=== PATIENT | female | born 1940 | race Caucasian/White ===

== ENCOUNTER 2017-02-10 12:30 | Emergency (ER) | payer MEDICARE ==
[2017-02-10] MEDS ORDERED: traMADol HCl 50 MG TAB ONE (13:19)
--- NOTE | 2017-02-10 13:36 | RAD ---
THREE VIEWS RIGHT SHOULDER: History: Patient fell three weeks ago. Pain. Comparison: None. FINDINGS: No dislocation. Contour of the humeral head is maintained. Visualized right ribs are unremarkable. N o fractures. IMPRESSION: No fracture or dislocation. POS: [facility]
--- NOTE | 2017-02-10 13:38 | RAD ---
THORACIC SPINE THREE VIEWS: History: Fall three weeks ago. Pain. Comparison: None. FINDINGS: Thoracic spine vertebral body height is maintained. There is no fracture. There is mild loss of disc space height and osteophyte formation throughout the thoracic spine. Note: Evaluation of the upper thoracic spine is limited on the AP and lateral projection due to exclusion. Repeat additional image s are recommended. IMPRESSION: No evidence of fracture on the visualized thoracic spine. Additional repeat images are recommended t o evaluate the upper thoracic spine. POS: [facility]
== END 2017-02-10 13:50 | disposition home or self-care (01) ==
LOC: MADERS 12:30
DX: S43.401A Unspecified sprain of right shoulder joint, initial encounter (principal); E03.9 Hypothyroidism, unspecified; I10 Essential (primary) hypertension; E11.9 Type 2 diabetes mellitus without complications; F32.9 Major depressive disorder, single episode, unspecified; Z79.82 Long term (current) use of aspirin; Z79.84 Long term (current) use of oral hypoglycemic drugs; Z79.899 Other long term (current) drug therapy; W18.30XA Fall on same level, unspecified, initial encounter
CPT/HCPCS: 72072

== ENCOUNTER 2022-01-06 10:21 | Inpatient (IN) | payer OTHER ==
[2022-01-06] MEDS ORDERED: Senokot S 8.6-50 MG TAB PO PRN (19:26)
[2022-01-06] MEDS ORDERED: Ondansetron ODT 4 MG TAB PO PRN (19:26)
[2022-01-06] MEDS: Acetaminophen 325 MG TAB PO PRN (20:25)
[2022-01-06] MEDS: Famotidine 20 MG TAB PO SCH (20:25)
[2022-01-06] MEDS ORDERED: Albuterol 200 PUFF (6.7GM INHALER) INH PRN (21:21)
[2022-01-06] MEDS ORDERED: Dextrose 50% Abboject 50 ML SYRINGE SLOW IVP PRN (21:36)
[2022-01-06] MEDS: clonazePAM 0.5 MG TAB PO PRN (22:12)
[2022-01-06] MEDS: HumaLOG 300 UNITS/3 ML VIAL SC PRN (22:20)
[2022-01-07] MEDS: Levothyroxine Sodium 75 MCG TAB PO SCH (05:46)
[2022-01-07] MEDS: Alogliptin 6.25 MG TAB PO SCH (08:29)
[2022-01-07] MEDS: Aspirin 81 mg Enteric Coated Tablet PO SCH (08:29)
[2022-01-07] MEDS: Fish Oil 1,000 MG CAP PO SCH (08:29)
[2022-01-07] MEDS: Citalopram 20 MG TAB PO SCH (08:29)
[2022-01-07] MEDS: Ezetimibe 10 MG TAB PO SCH (08:29)
[2022-01-07] MEDS: Lantus 1000 UNITS/10 ML VIAL SC SCH ×2 (08:30→21:24)
[2022-01-07] MEDS: Fluticasone Propionate Nasal Spray 16 gm Bottle NASAL SCH (08:30)
[2022-01-07] MEDS: Famotidine 20 MG TAB PO SCH ×2 (08:35→21:11)
[2022-01-07] MEDS: HumaLOG 300 UNITS/3 ML VIAL SC PRN (12:54)
[2022-01-07] MEDS: clonazePAM 0.5 MG TAB PO PRN (15:43)
[2022-01-07] MEDS: Atorvastatin Calcium 40 MG TAB PO SCH (21:11)
[2022-01-07] MEDS: Acetaminophen 325 MG TAB PO PRN (21:11)
[2022-01-07] MEDS: traZODone HCl 50 MG TAB PO PRN (21:11)
[2022-01-08] MEDS: Levothyroxine Sodium 75 MCG TAB PO SCH (05:49)
[2022-01-08] MEDS: Citalopram 20 MG TAB PO SCH (08:44)
[2022-01-08] MEDS: Ezetimibe 10 MG TAB PO SCH (08:44)
[2022-01-08] MEDS: Famotidine 20 MG TAB PO SCH ×2 (08:44→21:45)
[2022-01-08] MEDS: Fluticasone Propionate Nasal Spray 16 gm Bottle NASAL SCH (08:44)
[2022-01-08] MEDS: Fish Oil 1,000 MG CAP PO SCH (08:44)
[2022-01-08] MEDS: Aspirin 81 mg Enteric Coated Tablet PO SCH (08:44)
[2022-01-08] MEDS: Alogliptin 6.25 MG TAB PO SCH (08:44)
[2022-01-08] MEDS: Lantus 1000 UNITS/10 ML VIAL SC SCH ×2 (08:45→21:46)
[2022-01-08] MEDS: HumaLOG 300 UNITS/3 ML VIAL SC PRN ×2 (12:12→17:21)
[2022-01-08] MEDS: clonazePAM 0.5 MG TAB PO PRN (15:38)
[2022-01-08] MEDS: Atorvastatin Calcium 40 MG TAB PO SCH (21:44)
[2022-01-08] MEDS: Acetaminophen 325 MG TAB PO PRN (21:45)
[2022-01-08] MEDS: traZODone HCl 50 MG TAB PO PRN (21:45)
[2022-01-09] MEDS: Levothyroxine Sodium 75 MCG TAB PO SCH (05:34)
[2022-01-09] MEDS: Aspirin 81 mg Enteric Coated Tablet PO SCH (09:01)
[2022-01-09] MEDS: Ezetimibe 10 MG TAB PO SCH (09:02)
[2022-01-09] MEDS: Alogliptin 6.25 MG TAB PO SCH (09:02)
[2022-01-09] MEDS: Citalopram 20 MG TAB PO SCH (09:02)
[2022-01-09] MEDS: Famotidine 20 MG TAB PO SCH ×2 (09:02→21:00)
[2022-01-09] MEDS: Lantus 1000 UNITS/10 ML VIAL SC SCH ×2 (09:03→21:06)
[2022-01-09] MEDS: Fish Oil 1,000 MG CAP PO SCH (09:03)
[2022-01-09] MEDS: Fluticasone Propionate Nasal Spray 16 gm Bottle NASAL SCH (09:04)
[2022-01-09] MEDS: HumaLOG 300 UNITS/3 ML VIAL SC PRN ×2 (12:16→16:34)
[2022-01-09] MEDS: clonazePAM 0.5 MG TAB PO PRN (21:00)
[2022-01-09] MEDS: Atorvastatin Calcium 40 MG TAB PO SCH (21:03)
[2022-01-10] MEDS: Levothyroxine Sodium 75 MCG TAB PO SCH (05:51)
[2022-01-10] MEDS: Alogliptin 6.25 MG TAB PO SCH (08:59)
[2022-01-10] MEDS: Aspirin 81 mg Enteric Coated Tablet PO SCH (08:59)
[2022-01-10] MEDS: Lantus 1000 UNITS/10 ML VIAL SC SCH ×2 (08:59→21:44)
[2022-01-10] MEDS: Famotidine 20 MG TAB PO SCH ×2 (08:59→21:44)
[2022-01-10] MEDS: Ezetimibe 10 MG TAB PO SCH (09:00)
[2022-01-10] MEDS: Citalopram 20 MG TAB PO SCH (09:00)
[2022-01-10] MEDS: Fluticasone Propionate Nasal Spray 16 gm Bottle NASAL SCH (09:03)
[2022-01-10] MEDS: Fish Oil 1,000 MG CAP PO SCH (09:03)
[2022-01-10 09:42] VITALS: BMI 24.6
[2022-01-10] MEDS: HumaLOG 300 UNITS/3 ML VIAL SC PRN ×2 (12:18→17:01)
[2022-01-10] MEDS: clonazePAM 0.5 MG TAB PO PRN ×2 (14:58→21:46)
[2022-01-10] MEDS: Atorvastatin Calcium 40 MG TAB PO SCH (21:44)
[2022-01-11] MEDS: Levothyroxine Sodium 75 MCG TAB PO SCH (05:12)
[2022-01-11] MEDS: Alogliptin 6.25 MG TAB PO SCH (08:29)
[2022-01-11] MEDS: Fish Oil 1,000 MG CAP PO SCH (08:29)
[2022-01-11] MEDS: Famotidine 20 MG TAB PO SCH ×2 (08:29→20:04)
[2022-01-11] MEDS: Aspirin 81 mg Enteric Coated Tablet PO SCH (08:30)
[2022-01-11] MEDS: Citalopram 20 MG TAB PO SCH (08:30)
[2022-01-11] MEDS: Ezetimibe 10 MG TAB PO SCH (08:30)
[2022-01-11] MEDS: Fluticasone Propionate Nasal Spray 16 gm Bottle NASAL SCH (08:31)
[2022-01-11] MEDS: Lantus 1000 UNITS/10 ML VIAL SC SCH ×2 (08:31→20:18)
[2022-01-11] MEDS: clonazePAM 0.5 MG TAB PO PRN (15:33)
[2022-01-11] MEDS: Atorvastatin Calcium 40 MG TAB PO SCH (20:04)
[2022-01-11] MEDS: Melatonin 3 MG TAB PO PRN (20:05)
[2022-01-11] MEDS: traZODone HCl 50 MG TAB PO PRN (20:05)
[2022-01-11] MEDS: HumaLOG 300 UNITS/3 ML VIAL SC PRN (20:10)
[2022-01-11] MEDS ORDERED: Loperamide HCl 2 MG CAP PO PRN (21:05)
[2022-01-11] MEDS ORDERED: Loperamide HCl 2 MG CAP PO SCH (21:15)
[2022-01-12] MEDS: Levothyroxine Sodium 75 MCG TAB PO SCH (05:27)
[2022-01-12] MEDS: clonazePAM 0.5 MG TAB PO PRN ×2 (05:28→18:25)
[2022-01-12] MEDS: Famotidine 20 MG TAB PO SCH ×2 (08:31→20:38)
[2022-01-12] MEDS: Aspirin 81 mg Enteric Coated Tablet PO SCH (08:31)
[2022-01-12] MEDS: Lantus 1000 UNITS/10 ML VIAL SC SCH ×2 (08:31→20:39)
[2022-01-12] MEDS: Alogliptin 6.25 MG TAB PO SCH (08:31)
[2022-01-12] MEDS: Ezetimibe 10 MG TAB PO SCH (08:31)
[2022-01-12] MEDS: Fish Oil 1,000 MG CAP PO SCH (08:32)
[2022-01-12] MEDS: Citalopram 20 MG TAB PO SCH (08:32)
[2022-01-12] MEDS: Fluticasone Propionate Nasal Spray 16 gm Bottle NASAL SCH (08:33)
[2022-01-12] MEDS: HumaLOG 300 UNITS/3 ML VIAL SC PRN (17:04)
[2022-01-12] MEDS: Atorvastatin Calcium 40 MG TAB PO SCH (20:38)
[2022-01-12] MEDS: Melatonin 3 MG TAB PO PRN (20:38)
[2022-01-12] MEDS: traZODone HCl 50 MG TAB PO PRN (20:38)
[2022-01-13] MEDS: Levothyroxine Sodium 75 MCG TAB PO SCH (05:51)
[2022-01-13] MEDS: Ezetimibe 10 MG TAB PO SCH (08:27)
[2022-01-13] MEDS: Fish Oil 1,000 MG CAP PO SCH (08:27)
[2022-01-13] MEDS: Citalopram 20 MG TAB PO SCH (08:27)
[2022-01-13] MEDS: Lantus 1000 UNITS/10 ML VIAL SC SCH ×2 (08:27→20:43)
[2022-01-13] MEDS: Alogliptin 6.25 MG TAB PO SCH (08:27)
[2022-01-13] MEDS: Aspirin 81 mg Enteric Coated Tablet PO SCH (08:27)
[2022-01-13] MEDS: Famotidine 20 MG TAB PO SCH ×2 (08:28→20:44)
[2022-01-13] MEDS: Fluticasone Propionate Nasal Spray 16 gm Bottle NASAL SCH (08:28)
[2022-01-13] MEDS: HumaLOG 300 UNITS/3 ML VIAL SC PRN ×2 (12:31→18:24)
[2022-01-13] MEDS: clonazePAM 0.5 MG TAB PO PRN (14:58)
[2022-01-13] MEDS: traZODone HCl 50 MG TAB PO PRN (20:44)
[2022-01-13] MEDS: Atorvastatin Calcium 40 MG TAB PO SCH (20:44)
[2022-01-14] MEDS: clonazePAM 0.5 MG TAB PO PRN ×2 (00:40→16:22)
[2022-01-14] MEDS: Levothyroxine Sodium 75 MCG TAB PO SCH (05:41)
[2022-01-14] MEDS: Fluticasone Propionate Nasal Spray 16 gm Bottle NASAL SCH (08:38)
[2022-01-14] MEDS: Lantus 1000 UNITS/10 ML VIAL SC SCH ×2 (08:39→20:37)
[2022-01-14] MEDS: Aspirin 81 mg Enteric Coated Tablet PO SCH (08:39)
[2022-01-14] MEDS: Ezetimibe 10 MG TAB PO SCH (08:39)
[2022-01-14] MEDS: Fish Oil 1,000 MG CAP PO SCH (08:39)
[2022-01-14] MEDS: Famotidine 20 MG TAB PO SCH ×2 (08:39→20:37)
[2022-01-14] MEDS: Citalopram 20 MG TAB PO SCH (08:39)
[2022-01-14] MEDS: Alogliptin 6.25 MG TAB PO SCH (08:39)
[2022-01-14] MEDS: HumaLOG 300 UNITS/3 ML VIAL SC PRN (17:19)
[2022-01-14] MEDS: traZODone HCl 50 MG TAB PO PRN (20:37)
[2022-01-14] MEDS: Atorvastatin Calcium 40 MG TAB PO SCH (20:37)
[2022-01-15] MEDS: Levothyroxine Sodium 75 MCG TAB PO SCH (05:32)
[2022-01-15] MEDS: Ezetimibe 10 MG TAB PO SCH (08:30)
[2022-01-15] MEDS: Aspirin 81 mg Enteric Coated Tablet PO SCH (08:30)
[2022-01-15] MEDS: Citalopram 20 MG TAB PO SCH (08:30)
[2022-01-15] MEDS: Alogliptin 6.25 MG TAB PO SCH (08:30)
[2022-01-15] MEDS: Lantus 1000 UNITS/10 ML VIAL SC SCH ×2 (08:31→20:44)
[2022-01-15] MEDS: Fish Oil 1,000 MG CAP PO SCH (08:32)
[2022-01-15] MEDS: Fluticasone Propionate Nasal Spray 16 gm Bottle NASAL SCH (08:32)
[2022-01-15] MEDS: clonazePAM 0.5 MG TAB PO PRN (14:47)
[2022-01-15] MEDS: HumaLOG 300 UNITS/3 ML VIAL SC PRN (17:20)
[2022-01-15] MEDS: Atorvastatin Calcium 40 MG TAB PO SCH (20:43)
[2022-01-15] MEDS: traZODone HCl 50 MG TAB PO PRN (20:43)
[2022-01-15] MEDS: Melatonin 3 MG TAB PO PRN (22:13)
[2022-01-16] MEDS: Levothyroxine Sodium 75 MCG TAB PO SCH (06:11)
[2022-01-16] MEDS: Ezetimibe 10 MG TAB PO SCH (08:37)
[2022-01-16] MEDS: Lantus 1000 UNITS/10 ML VIAL SC SCH (08:37)
[2022-01-16] MEDS: Alogliptin 6.25 MG TAB PO SCH (08:37)
[2022-01-16] MEDS: Fish Oil 1,000 MG CAP PO SCH (08:37)
[2022-01-16] MEDS: Citalopram 20 MG TAB PO SCH (08:37)
[2022-01-16] MEDS: Aspirin 81 mg Enteric Coated Tablet PO SCH (08:37)
[2022-01-16] MEDS: Fluticasone Propionate Nasal Spray 16 gm Bottle NASAL SCH (08:38)
[2022-01-16 08:46] VITALS: BP 136/68; TEMP 97.9
[2022-01-16] MEDS: HumaLOG 300 UNITS/3 ML VIAL SC PRN (11:56)
== END 2022-01-16 14:15 | DRG 56 ==
LOC: MADMS 17:26
PROVIDERS: ADMIT Family Medicine; ATTEND Family Medicine
PROC: 8E0ZXY6 Isolation (ICD-10-PCS; principal; 2022-01-06)
DX: I69.398 Other sequelae of cerebral infarction (principal); U07.1 COVID-19; Z66 Do not resuscitate; E11.9 Type 2 diabetes mellitus without complications; E03.9 Hypothyroidism, unspecified; R53.81 Other malaise; D69.6 Thrombocytopenia, unspecified; R33.9 Retention of urine, unspecified; F41.9 Anxiety disorder, unspecified; E78.00 Pure hypercholesterolemia, unspecified; Z91.14 Patient's other noncompliance with medication regimen; Z87.01 Personal history of pneumonia (recurrent); Z88.0 Allergy status to penicillin; Z88.2 Allergy status to sulfonamides; Z88.8 Allergy status to other drugs, medicaments and biological substances; Z79.899 Other long term (current) drug therapy; Z79.82 Long term (current) use of aspirin; Z79.890 Hormone replacement therapy; Z79.4 Long term (current) use of insulin; Z95.810 Presence of automatic (implantable) cardiac defibrillator; Z90.710 Acquired absence of both cervix and uterus
CPT/HCPCS: 36416; J1815

== ENCOUNTER 2022-02-10 15:38 | Emergency (ER) | payer OTHER ==
[~2022-02-10 15:38] MED LIST: Iopamidol 370 76% 125 ML VIAL FS ONE
[2022-02-10 16:26] LABS: INR-International Normal Ratio 1.1; PTT 28.5 sec (22.9-36.1); Prothrombin Time 13.9 sec (12.0-14.7)
[2022-02-10 16:38] LABS: ALT (SGPT) 15 U/L (8-55); AST (SGOT) 19 U/L (5-34); Albumin 3.6 g/dL (3.4-4.8); Alkaline Phosphatase 79 U/L (40-110); Anion Gap 14 mmol/L (10-20); BUN (Urea Nitrogen) 16 mg/dL (9.8-20.1); Bilirubin, Total 0.8 mg/dL (0.2-1.2); Calc. Creatinine Clearance 0 mL/min (70-130); Calcium 8.6 mg/dL (7.8-10.44); Carbon Dioxide 23 mmol/L (23-31); Chloride 107 mmol/L (98-107); Estimated GFR 48; Globulin 3.4 g/dL (2.4-3.5); Glucose 172 mg/dL (83-110); Potassium 4.3 mmol/L (3.5-5.1); Sodium 140 mmol/L (136-145)
[2022-02-10 16:43] LABS: Bicarbonate (HCO3v) 24.4 mmol/L (22.0-28.0); CO2 Tension (PvCO2) 38.4 mmHg (42.0-51.0); Calcium, Ionized 1.07 mmol/L (1.15-1.33); Chloride 109 mmol/L (98-107); Hemoglobin - Calc 13.9 g/dL (12.0-16.0); Potassium 4.3 mmol/L (3.5-5.1); Sodium 143 mmol/L (138-145); T. Carbon Dioxide 25.6 mmol/L (22.0-28.0); vO2 Saturation-calc 99.1 % (60.0-85.0)
[2022-02-10 16:46] LABS: #Basophils 0.1 thou/uL (0.0-0.2); #Eosinphils 0.2 thou/uL (0.0-0.7); #Lymphocytes 1.9 thou/uL (1.20-3.40); #Monocytes 0.6 thou/uL (0.11-0.59); #Neutrophils 7.7 thou/uL (1.40-6.50); %Basophils 0.9 % (0.0-1.0); %Eosinophils 1.5 % (0.0-10.0); %Lymphocytes 18.3 % (21.0-51.0); %Monocytes 5.9 % (0.0-10.0); %Neutrophils 73.4 % (42.0-75.0); Giant Platelets SLIGHT; Hemoglobin 11.3 g/dL (12.0-16.0); Large Platelets SLIGHT; MDiff Complete? YES; Mean Corpuscular HGB CONC 30.3 g/dL (32.0-36.0); Mean Corpuscular Hemoglobin 24.4 pg (27.0-31.0); Mean Corpuscular Volume 80.4 fL (78.0-98.0); Mean Platelet Volume 14.6 fL (7.4-10.4); Platelet Count 64 thou/uL (130-400); Platelet Morphology Comment Appears Decreased; RBC Distribution Width 14.1 % (11.5-14.5); Red Blood Cell (RBC) Count 4.64 mill/uL (4.20-5.40); White Blood Cell (WBC) Count 10.4 thou/uL (4.8-10.8)
[2022-02-10 16:57] LABS: CKMB 1.1 ng/mL (0-6.6)
[2022-02-10] MEDS ORDERED: Sodium Chloride 0.9% 0 ML ONE (18:41)
[2022-02-10] MEDS ORDERED: Sodium Chloride 0.9% 500 ML ONE (18:43)
[2022-02-10 19:06] LABS: Bilirubin Negative (Negative); Blood, Urine Small (Negative); Glucose, Urine (Dipstick) Negative (Negative); Ketone, Urine Negative (Negative); Leukocyte Small (Negative); Nitrite Positive (Negative); Protein, Urine (Dipstick) Negative (Neg-Trace); Urobilinogen 0.2 mg/dL (Less than 2); pH, Urine 5.5 (5.0-9.0)
[2022-02-10 19:09] LABS: Clarity Cloudy (Clear)
[2022-02-10 19:19] LABS: Bacteria/HPF 3+ HPF (None Seen); RBC/HPF 0-3 HPF (0-3); Squamous Epithelial 0-3 HPF (0-3); WBC/HPF 21-50 HPF (0-3)
== END 2022-02-10 19:03 | disposition short-term general hospital (02) ==
LOC: MADERS 15:38
DX: N17.9 Acute kidney failure, unspecified (principal); D69.6 Thrombocytopenia, unspecified; R53.1 Weakness; R77.8 Other specified abnormalities of plasma proteins; R29.702 NIHSS score 2; I10 Essential (primary) hypertension; E03.9 Hypothyroidism, unspecified; E78.00 Pure hypercholesterolemia, unspecified; Z95.810 Presence of automatic (implantable) cardiac defibrillator
CPT/HCPCS: 36416; 70450; 70496; 70498; 71045; 80053; 81003; 81015; 82330; 82553; 82803; 83605; 84484; 85014; 85025; 85610; 85730; J7030; J7050; Q9967

== ENCOUNTER 2022-03-20 18:51 | Emergency (ER) | payer OTHER ==
[~2022-03-20 18:51] MED LIST changes: +Iopamidol 370 76% 100 ML VIAL ONE; -Iopamidol 370 76% 125 ML VIAL FS ONE
[2022-03-20 19:46] LABS: Bilirubin Large (Negative); Blood, Urine Large (Negative); Glucose, Urine (Dipstick) 100 mg/dL (Negative); Ketone, Urine 15 mg/dL (Negative); Leukocyte Large (Negative); Nitrite Positive (Negative); Protein, Urine (Dipstick) > or equal to 300 mg/dL (Neg-Trace); pH, Urine 5.5 (5.0-9.0)
[2022-03-20 19:48] LABS: #Basophils 0.1 thou/uL (0.0-0.2); #Eosinphils 0.5 thou/uL (0.0-0.7); #Lymphocytes 1.9 thou/uL (1.20-3.40); #Neutrophils 9.2 thou/uL (1.40-6.50); %Basophils 0.6 % (0.0-1.0); %Eosinophils 3.9 % (0.0-10.0); %Lymphocytes 15.4 % (21.0-51.0); %Monocytes 7.7 % (0.0-10.0); %Neutrophils 72.5 % (42.0-75.0); MDiff Complete? YES; Mean Corpuscular Hemoglobin 26.4 pg (27.0-31.0); Mean Corpuscular Volume 79.9 fl (78.0-98.0); Mean Platelet Volume 14.9 fL (7.4-10.4); Ovalocytes SLIGHT = 2-5 cells (100X) (0-1/hpf); Platelet Count 58 thou/uL (130-400); Platelet Morphology Comment Appears Decreased; RBC Distribution Width 13.7 % (11.5-14.5); White Blood Cell (WBC) Count 12.6 thou/uL (4.8-10.8)
[2022-03-20 19:48] LABS: Clarity Cloudy (Clear)
[2022-03-20 19:52] LABS: RBC/HPF Greater than 50 HPF (0-3); Squamous Epithelial 0-3 HPF (0-3); WBC/HPF Greater Than 50 HPF (0-3)
[2022-03-20 19:53] LABS: Bacteria/HPF 2+ HPF (None Seen)
[2022-03-20 19:58] LABS: ALT (SGPT) 9 U/L (8-55); AST (SGOT) 13 U/L (5-34); Albumin 2.9 g/dL (3.4-4.8); Alkaline Phosphatase 80 U/L (40-110); Anion Gap 12 mmol/L (10-20); BUN (Urea Nitrogen) 22 mg/dL (9.8-20.1); Bilirubin, Total 0.4 mg/dL (0.2-1.2); Calc. Creatinine Clearance 0 mL/min (70-130); Carbon Dioxide 25 mmol/L (23-31); Chloride 103 mmol/L (98-107); Estimated GFR 53; Globulin 2.5 g/dL (2.4-3.5); Glucose 200 mg/dL (83-110); Potassium 3.6 mmol/L (3.5-5.1); Protein, Total 5.4 g/dL (5.8-8.1); Sodium 136 mmol/L (136-145)
[2022-03-20] MEDS ORDERED: Sodium Chloride 0.9% 100 ML ONE (20:30)
[2022-03-20] MEDS ORDERED: cefTRIAXone\\ROCEPHIN 2 GM VIAL ONE (20:30)
[2022-03-20] MEDS ORDERED: Morphine 4 MG/ML VIAL ONE (20:56)
[2022-03-20] MEDS ORDERED: Ondansetron PF 4 MG/2 ML Vial ONE (20:57)
== END 2022-03-20 22:41 | disposition short-term general hospital (02) ==
LOC: MADERS 18:51
DX: N30.81 Other cystitis with hematuria (principal); D64.9 Anemia, unspecified; I10 Essential (primary) hypertension; E78.00 Pure hypercholesterolemia, unspecified; E03.9 Hypothyroidism, unspecified; K21.9 Gastro-esophageal reflux disease without esophagitis; E11.9 Type 2 diabetes mellitus without complications; Z79.82 Long term (current) use of aspirin; Z79.4 Long term (current) use of insulin; Z79.899 Other long term (current) drug therapy
CPT/HCPCS: 36415; 51701; 74177; 80053; 81003; 81015; 85025; 87077; 87086; 87186; 96365; 96374; 96375; J0696; J2270; J2405; J3490; Q9967